=== PATIENT | female | born 1950 | race Caucasian/White ===

== ENCOUNTER → 2018-07-28 | Outpatient (CLI) | payer MEDICARE ==
[~2018-07-28] MED LIST: ASPI-496 PO; ASPI-515 PO; ASPI325T17 PO; CELE200C PO; DABI150C PO; DABI75CA3 PO; DIGO250T PO; DILT120C11 PO; DILT120C80 PO; DILT120C9 PO; FURO20TA3 PO; LISI-167 PO; METO-95 PO; METO25TA35 PO; METO50TA82 PO; PRAV20TA2 PO; TRAM50TA2 PO
== END | disposition home or self-care (01) ==
LOC: CFH 08:56
PROVIDERS: ATTEND Internal Medicine Cardiovascular Disease
DX: I08.1 Rheumatic disorders of both mitral and tricuspid valves (principal); I10 Essential (primary) hypertension; E78.5 Hyperlipidemia, unspecified; Z95.4 Presence of other heart-valve replacement
CPT/HCPCS: 93306

== ENCOUNTER 2019-08-03 08:42 | Outpatient (CLI) | payer MEDICARE ==
[~2019-08-03 08:42] MED LIST changes: -DIGO250T PO; +DIGO250T3 PO; +DILT120C48 PO; -DILT120C9 PO
== END 2019-08-03 23:59 | disposition home or self-care (01) ==
LOC: CFH 08:42
PROVIDERS: ATTEND Nurse Practitioner Family
DX: I34.0 Nonrheumatic mitral (valve) insufficiency (principal)
CPT/HCPCS: 93306